=== PATIENT | female | born 1980 | race Caucasian/White ===

== ENCOUNTER 2022-12-05 19:48 | Emergency (ER) | payer OTHER ==
[~2022-12-05] VITALS: Ht 165.1 cm; Wt 108.4 kg
[2022-12-05 20:20] VITALS: BP_SYST 149; PULSE 80; RESP 18; TEMP 98.3; O2SAT 97
== END 2022-12-06 00:35 | disposition left against medical advice (07) ==
LOC: SED 19:48
DX: Z76.0 Encounter for issue of repeat prescription (principal); Z53.21 Procedure and treatment not carried out due to patient leaving prior to being seen by health care provider
CPT/HCPCS: 99281

== ENCOUNTER 2023-05-06 14:10 | Emergency (ER) | payer MEDICAID, OTHER ==
[~2023-05-06] VITALS: Ht 165.1 cm; Wt 104.3 kg
[2023-05-06 14:10] VITALS: BP_SYST 142; PULSE 113; RESP 19; TEMP 98.5; O2SAT 98
[2023-05-06] MEDS ORDERED: LamoTRIgine 100 MG TABLET PO SCH (14:30)
[2023-05-06] MEDS: LamoTRIgine 100 MG TABLET PO ONE (15:18)
[2023-05-06] MEDS: KETOROLAC TROMETHAMINE 30 MG VIAL IM ONE (16:06)
[2023-05-06 16:34] VITALS: BP_SYST 104; PULSE 83; RESP 18; TEMP 98.5; O2SAT 96
== END 2023-05-06 16:15 | disposition home or self-care (01) ==
LOC: SED 14:19
DX: S02.2XXA Fracture of nasal bones, initial encounter for closed fracture (principal); S00.83XA Contusion of other part of head, initial encounter; G40.909 Epilepsy, unspecified, not intractable, without status epilepticus; Z91.041 Radiographic dye allergy status; Z79.899 Other long term (current) drug therapy; W01.0XXA Fall on same level from slipping, tripping and stumbling without subsequent striking against object, initial encounter; Y93.89 Activity, other specified; Y92.89 Other specified places as the place of occurrence of the external cause; Y99.8 Other external cause status
CPT/HCPCS: 99285; 70450; 36415; 70486; 96372; 82542; J1885

== ENCOUNTER 2023-05-15 15:21 | Emergency (ER) | payer MEDICAID ==
[~2023-05-15] VITALS: Ht 165.1 cm; Wt 104.3 kg
[2023-05-15] MEDS ORDERED: LAM100 PO (15:46)
[2023-05-15 15:57] VITALS: BP_SYST 150; PULSE 95; RESP 22; TEMP 98.3; O2SAT 98
[2023-05-15 16:45] VITALS: BP_SYST 145; PULSE 95; RESP 22; TEMP 98.3; O2SAT 98
== END 2023-05-15 16:45 | disposition home or self-care (01) ==
LOC: SED 15:21
DX: Z76.0 Encounter for issue of repeat prescription (principal); Z91.041 Radiographic dye allergy status; Z79.899 Other long term (current) drug therapy
CPT/HCPCS: 99281

== ENCOUNTER 2023-11-16 11:44 | Emergency (ER) | payer MEDICAID ==
[~2023-11-16] VITALS: Ht 165.1 cm; Wt 102.1 kg
[~2023-11-16 11:44] MED LIST: LAM100 PO
[2023-11-16 11:55] VITALS: BP_SYST 154; PULSE 88; RESP 16; TEMP 97.8; O2SAT 98
[2023-11-16] MEDS ORDERED: LIDOCAINE 1%, 20 ML MDV 20 ML ONE (12:51)
[2023-11-16] MEDS ORDERED: LIDOCAINE 1% 10 MG/ML, 20 ML MDV INJ ONE (13:00)
[2023-11-16] MEDS: DIPHTH,PERTUSS(ACELL),TET VAC 0.5 ML VIAL (Tdap) I.M. ONE (13:17)
[2023-11-16] MEDS: BACITRACIN 1 GM OINT TP ONE (13:17)
[2023-11-16 13:41] VITALS: BP_SYST 154; PULSE 88; RESP 16; TEMP 97.8; O2SAT 98
[2023-11-16] MEDS: IBUPROFEN 800 MG TABLET PO ONE (13:41)
== END 2023-11-16 13:41 | disposition home or self-care (01) ==
LOC: SED 11:44
DX: S61.210A Laceration without foreign body of right index finger without damage to nail, initial encounter (principal); R03.0 Elevated blood-pressure reading, without diagnosis of hypertension; Z23 Encounter for immunization; Z91.041 Radiographic dye allergy status; Z79.899 Other long term (current) drug therapy; W26.8XXA Contact with other sharp object(s), not elsewhere classified, initial encounter; Y93.89 Activity, other specified; Y92.89 Other specified places as the place of occurrence of the external cause; Y99.8 Other external cause status
CPT/HCPCS: 73140; 90715; 99283; J2001

== ENCOUNTER 2023-12-04 19:05 | Emergency (ER) | payer MEDICAID ==
[~2023-12-04] VITALS: Ht 165.1 cm; Wt 103.4 kg
[2023-12-04 19:17] VITALS: BP_SYST 146; PULSE 79; RESP 18; TEMP 98; O2SAT 98
[2023-12-04 19:59] VITALS: BP_SYST 146; PULSE 79; RESP 18; TEMP 98; O2SAT 98
== END 2023-12-04 19:59 | disposition home or self-care (01) ==
LOC: SED 19:05
DX: M79.644 Pain in right finger(s) (principal); R03.0 Elevated blood-pressure reading, without diagnosis of hypertension; E11.9 Type 2 diabetes mellitus without complications; Z91.041 Radiographic dye allergy status; Z88.8 Allergy status to other drugs, medicaments and biological substances
CPT/HCPCS: 99283